=== PATIENT | male | born 1990 | race African-American/Black ===

== ENCOUNTER 2024-12-21 19:20 | Emergency (ER) | payer OTHER ==
[~2024-12-21] VITALS: Ht 180.3 cm; Wt 97.5 kg
[2024-12-21 20:11] VITALS: BP 106/63; TEMP 98.1; O2SAT 98
== END 2024-12-21 21:40 | disposition home or self-care (01) ==
LOC: ER 19:22
DX: M25.562 Pain in left knee (principal)
CPT/HCPCS: 73564-TC